=== PATIENT | male | born 1995 | race Caucasian/White ===

== ENCOUNTER 2017-06-30 17:55 | Inpatient (IN) | payer OTHER ==
[2017-06-30 20:45] LABS: HEMOGLOBIN 15.4 g/dl (13.5-17.5); MEAN CORPUSCULAR HEMOGLOBIN 29.6 pg (27.0-33.0); MEAN CORPUSCULAR VOLUME 84.6 fl (80.0-96.0); PLATELET COUNT, AUTOMATED 244 10^3/uL (150-450); RED CELL DISTRIBUTION WIDTH 12.6 % (11.5-14.5); WHITE BLOOD COUNT 6.8 10^3/uL (4.0-10.0)
[2017-06-30 20:56] LABS: AMPHETAMINES LEVEL URINE NEGATIVE (NEGATIVE); BARBITURATES URINE NEGATIVE (NEGATIVE); BENZODIAZEPINES URINE NEGATIVE (NEGATIVE); CANNABINOIDS URINE NEGATIVE (NEGATIVE); COCAINE METABOLITE URINE NEGATIVE (NEGATIVE); METHADONE URINE NEGATIVE (NEGATIVE); OPIATES URINE NEGATIVE (NEGATIVE); PHENCYCLIDINE URINE NEGATIVE (NEGATIVE)
[2017-06-30 21:07] LABS: ALBUMIN 4.5 GM/DL (3.2-5.2); ALBUMIN/GLOBULIN RATIO 1.25 (1.00-1.93); ALKALINE PHOSPHATASE 97 U/L (45-117); ALT/SGPT 18 U/L (12-78); ANION GAP 6 MEQ/L (8-16); AST/SGOT 17 U/L (7-37); BILIRUBIN,DIRECT 0.2 MG/DL (0.0-0.2); BILIRUBIN,TOTAL 0.5 MG/DL (0.2-1.0); BLOOD UREA NITROGEN 9 MG/DL (7-18); CALCIUM LEVEL 9.2 MG/DL (8.5-10.1); CARBON DIOXIDE LEVEL 28 MEQ/L (21-32); CHLORIDE LEVEL 107 MEQ/L (98-107); CREATININE FOR GFR 0.92 MG/DL (0.70-1.30); ETHYL ALCOHOL (ETHANOL) < 0.003 % (0.000-0.010); GLUCOSE, FASTING 92 MG/DL (70-100); SALICYLATE LEVEL < 1.7 MG/DL (5.0-30.0); SODIUM LEVEL 141 MEQ/L (136-145); TOTAL PROTEIN 8.1 GM/DL (6.4-8.2)
[2017-06-30 21:17] LABS: ACETAMINOPHEN LEVEL < 2.0 UG/ML (10.0-30.0)
[2017-06-30] MEDS: NAPROXEN 250 MG TAB PO (21:52)
[2017-06-30] MEDS ORDERED: traZODone 50 MG TAB PO (22:00)
[2017-06-30] MEDS ORDERED: ACETAMINOPHEN TAB 650MG DOSE (2X325MG) PO (22:00)
[2017-06-30] MEDS ORDERED: MOM 30ML SUSPENSION UDC PO (22:00)
[2017-06-30] MEDS ORDERED: MAALOX 30 ML SUSP *UDC PO (22:00)
[2017-06-30] MEDS: CYCLOBENZAPRINE 5MG TABLET PO (23:30)
[2017-07-01] MEDS ORDERED: IBUPROFEN 400 MG TAB PO (08:45)
[2017-07-01] MEDS ORDERED: LORazepam 1 MG TAB PO (16:15)
[2017-07-01] MEDS: LORazepam 1 MG TAB PO (16:27)
[2017-07-02] MEDS: **NOTE PATIENT COMMENT** MISC XX (08:43)
[2017-07-03] MEDS: **NOTE PATIENT COMMENT** MISC XX (08:09)
[2017-07-04] MEDS: **NOTE PATIENT COMMENT** MISC XX (08:15)
[2017-07-05] MEDS: **NOTE PATIENT COMMENT** MISC XX (07:35)
[2017-07-06] MEDS: **NOTE PATIENT COMMENT** MISC XX (07:22)
[2017-07-06] MEDS: LIDOCAINE 5% (LIDODERM) PATCH TD (22:25)
[2017-07-07] MEDS: **NOTE PATIENT COMMENT** MISC XX (09:07)
[2017-07-08] MEDS: **NOTE PATIENT COMMENT** MISC XX (08:13)
== END 2017-07-08 11:35 | disposition home or self-care (01) | DRG 881 ==
LOC: M ED 17:55 → M ED INP 21:48 → M PSY 22:50
DX: F43.21 Adjustment disorder with depressed mood (principal); R45.851 Suicidal ideations; F32.2 Major depressive disorder, single episode, severe without psychotic features; F17.210 Nicotine dependence, cigarettes, uncomplicated; M54.9 Dorsalgia, unspecified; Z79.899 Other long term (current) drug therapy